=== PATIENT | male | born 1965 | race Caucasian/White ===

== ENCOUNTER 2021-03-31 11:50 | Outpatient (REF) | payer OTHER, SELFPAY ==
[2021-03-31 13:35] LABS: Estimated Average Glucose 137 mg/dL; Hemoglobin A1c % 6.4 %
[2021-03-31 13:37] LABS: Anion Gap 11 (12-20); Blood Urea Nitrogen 8 mg/dL (9-16); Carbon Dioxide 25 mmol/L (22-29); Chloride 104 mmol/L (96-108); Estimated Glomerular Filt Rate > 60; Glucose Fasting 106 mg/dL (60-99); Potassium 4.2 mmol/L (3.3-5.1); Sodium 136 mmol/L (135-145)
== END 2021-03-31 11:51 | disposition home or self-care (01) ==
LOC: HO.LAB 11:50
PROVIDERS: PCP Family Medicine; Visit Provider Family Medicine
DX: E11.9 Type 2 diabetes mellitus without complications (principal); I10 Essential (primary) hypertension
CPT/HCPCS: 36415; 80051; 82565; 82947; 83036; 84520

== ENCOUNTER 2021-06-20 05:45 | Emergency (ER) | payer OTHER, SELFPAY ==
--- NOTE | ~2021-06-20 | XR_ITS ---
EXAMINATION: XR SHOULDER, RIGHT CLINICAL INFORMATION: Shoulder pain COMPARISON: None TECHNIQUE: Three views of the right shoulder. XR/XR shoulder RT min 2V FINDINGS/IMPRESSION: Comminuted fractures involving the greater tuberosity with mild displacement of the greater tuberosity fracture fragments superiorly. No dislocation. Degenerative changes of the acromioclavicular joint characterized by marginal osteophyte ptosis and subchondral cystic changes.
--- NOTE | ~2021-06-20 | CT_ITS ---
EXAMINATION: CT HEAD WITHOUT CONTRAST CLINICAL INFORMATION: Fall on blood thinners. COMPARISON: None TECHNIQUE: Contiguous axial imaging was performed from the skull base to vertex without intravenous administration of contrast. This CT examination was performed using dose optimization techniques as appropriate, variously including the following: *Automated exposure control *Adjustment of mA and/or kV according to patient size (this includes techniques or standardized protocols for targeted exams where dose is matched to indication/reason for exam; i.e. extremities or head) *Use of iterative reconstruction technique DLP: 919 mGy-cm FINDINGS: There is no evidence of acute intracranial hemorrhage or territorial infarction. No abnormal mass effect or midline shift is seen. Gallo to white matter differentiation is well preserved. No extra-axial fluid collections are identified. The ventricles are normal in size. There is no abnormal attenuation within the brain parenchyma. Arachnoid cyst present within the left middle cranial fossa. The osseous structures and soft tissues are normal. The mastoid air cells and visualized portions of the paranasal sinuses are well aerated. CT/CT head/brain wo con IMPRESSION: No acute intracranial pathology.
[2021-06-20 05:53] VITALS: BP 129/74; PULSE 107; RESP 18; TEMP 36.8; O2SAT 97; BMI 49.0
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
--- NOTE | 2021-06-20 06:38 | PC.NURSE ---
PT TO X-RAY AND CT.
--- NOTE | 2021-06-20 06:38 | PC.NURSE ---
SLING APPLIED TO RIGHT ARM.
== END 2021-06-20 07:56 | disposition home or self-care (01) ==
PROVIDERS: Emergency Provider Student in an Organized Health Care Education/Training Program; PCP Family Medicine
DX: S42.251A Displaced fracture of greater tuberosity of right humerus, initial encounter for closed fracture (principal); W22.09XA Striking against other stationary object, initial encounter; Y93.89 Activity, other specified; Y92.811 Bus as the place of occurrence of the external cause; Y99.9 Unspecified external cause status
CPT/HCPCS: 70450; 73030; 99283; 99284

== ENCOUNTER → 2021-06-22 11:55 | Outpatient (BNVA) | payer OTHER, SELFPAY | PROVIDERS: PCP Family Medicine; Visit Provider Physician Assistant | DX: S42.253A Displaced fracture of greater tuberosity of unspecified humerus, initial encounter for closed fracture (principal) | CPT/HCPCS: 99202 ==

== ENCOUNTER 2021-06-23 15:53 | Outpatient (REF) | payer OTHER, SELFPAY ==
--- NOTE | ~2021-06-23 | CT_ITS ---
EXAMINATION: CT SHOULDER WITHOUT CONTRAST, RIGHT CLINICAL INFORMATION: Displaced fracture of the greater tuberosity of the right humeral head. COMPARISON: Radiograph dated 06/20/2021. TECHNIQUE: Multidetector volumetric imaging was obtained through the right shoulder without contrast. Multiplanar reformatted images in coronal and sagittal orientations were submitted. This CT examination was performed using dose optimization techniques as appropriate, variously including the following: *Automated exposure control *Adjustment of mA and/or kV according to patient size (this includes techniques or standardized protocols for targeted exams where dose is matched to indication/reason for exam; i.e. extremities or head) *Use of iterative reconstruction technique DLP: 544 mGy-cm FINDINGS: A mildly comminuted fracture is present at the greater tuberosity over an area measuring 4.5 x 3.8 cm (AP by craniocaudal) with posterior/cephalad/medial displacement of the tuberosity fracture fragments by approximately 2 cm. These fragments remain attached to the supraspinatus and infraspinatus tendons at the insertion. There is slight comminution of the anterior margin along the supraspinatus insertion. The lesser tuberosity is intact. No appreciable surgical neck fracture of the proximal humerus. 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 Undersurface of the acromion is flat. There is mild glenohumeral osteoarthritis with small marginal osteophytes at the glenoid and humeral head. Clavicle is intact. Imaged portion of the right chest wall is intact. There is fat stranding and soft tissue swelling around the fracture with involvement of the overlying deltoid muscle. No significant rotator cuff muscle atrophy. No significant fluid collections are identified. CT/CT shoulder RT wo con IMPRESSION: Neer 2 part fracture of the right proximal humerus at the greater tuberosity with posterior/superior/medial displacement of the fragments by 2 cm.
== END 2021-06-23 15:54 | disposition home or self-care (01) ==
LOC: HO.CT 15:53
PROVIDERS: PCP Family Medicine; Visit Provider Orthopaedic Surgery
DX: S42.253A Displaced fracture of greater tuberosity of unspecified humerus, initial encounter for closed fracture (principal)
CPT/HCPCS: 73200

== ENCOUNTER → 2021-06-29 09:53 | Outpatient (BNVA) | payer OTHER, SELFPAY | PROVIDERS: Visit Provider Physician Assistant | DX: S42.253D Displaced fracture of greater tuberosity of unspecified humerus, subsequent encounter for fracture with routine healing (principal) | CPT/HCPCS: 99212 ==

== ENCOUNTER 2021-09-23 08:12 | Outpatient (REF) | payer OTHER, SELFPAY | END 2021-09-23 08:13 | disposition home or self-care (01) | LOC: HO.HOSX 08:12 | PROVIDERS: Visit Provider Physician Assistant | DX: Z13.89 Encounter for screening for other disorder (principal) ==

== ENCOUNTER 2022-01-13 10:51 | Outpatient (REF) | payer OTHER, SELFPAY ==
[2022-01-13 11:42] LABS: Estimated Average Glucose 131 mg/dL; Hemoglobin A1c % 6.2 %
[2022-01-13 12:14] LABS: Anion Gap 10 (12-20); Blood Urea Nitrogen 7 mg/dL (9-16); Carbon Dioxide 26 mmol/L (22-29); Chloride 104 mmol/L (96-108); Cholesterol 112 mg/dL; Estimated Glomerular Filt Rate > 60; Glucose Fasting 123 mg/dL (60-99); HDL Cholesterol 41 mg/dL; LDL Cholesterol Calculated 60 mg/dl; Potassium 4.4 mmol/L (3.3-5.1); Sodium 136 mmol/L (135-145); Triglycerides 59 mg/dL
[2022-01-13 12:36] LABS: Microalbum/Creatinine Ratio Ur 11.9 ug/mg cr
== END 2022-01-13 10:52 | disposition home or self-care (01) ==
LOC: HO.LAB 10:51
PROVIDERS: PCP Family Medicine; Visit Provider Family Medicine
DX: I10 Essential (primary) hypertension (principal); E11.9 Type 2 diabetes mellitus without complications; E78.00 Pure hypercholesterolemia, unspecified
CPT/HCPCS: 36415; 80051; 80061; 82043; 82565; 82947; 83036; 84520

== ENCOUNTER 2022-03-27 03:22 | Emergency (ER) | payer OTHER, SELFPAY ==
[2022-03-27 03:33] VITALS: BP 146/86; PULSE 67; RESP 16; TEMP 36.8; O2SAT 99; BMI 50.1
--- NOTE | 2022-03-27 07:31 | ED.EAR ---
HPI - Ear Problem General Chief complaint: Ear Problems Stated complaint: R ear pain, something stuck? Time Seen by Provider: 03/27/22 07:31 Source: patient Mode of arrival: ambulatory History of Present Illness HPI Narrative: 56-year-old male presents with complaints of having some ear discomfort and he attempted to clean his right ear with a Q-tip and states that he lost the cotton a part within the ear, attempted to rinse it out but was unsuccessful. Now he complains of muffled hearing and discomfort in the right ear. Related Data Previous Rx's Medication Instructions Recorded lidocaine HCl 2 % mucosal solution 1 appl mucous membrane Q8H PRN 10/15/20 (Lidocaine Viscous) pain #100 mL valacyclovir 1 gram tablet 1,000 mg PO BID 7 days #14 tabs 10/15/20 (Valtrex) clindamycin HCl 300 mg capsule 300 mg PO TID 7 days #21 caps 10/23/20 naproxen 500 mg tablet 500 mg PO BID PRN pain #60 tabs 10/23/20 oxycodone 5 mg tablet 5 mg PO Q8H PRN pain 7 days #21 06/22/21 tabs Allergies Allergy/AdvReac Type Severity Reaction Status Date / Time No Known Allergies Allergy Verified 06/22/21 12:11 [No Known Allergies*] Review of Systems Review of Systems: Pertinent positives and negatives as stated in HPI 10 point review of systems otherwise negative. PMFSH Past Medical History Source: nursing notes reviewed Social History Social History Advance Directives: No Physical Exam Vital Signs: Vital Signs: Last Vital Signs Temp 98.3 F 03/27/22 03:33 Pulse 67 03/27/22 03:33 Resp 16 03/27/22 03:33 BP 146/86 H 03/27/22 03:33 Pulse Ox 99 03/27/22 03:33 O2 Del Method 03/27/22 03:33 BMI result Body Mass Index 50.1 VITAL SIGNS: Reviewed. GENERAL: Well developed, well nourished, in no acute distress. HEAD: Normocephalic/atraumatic EYES: PERRLA, EOMI EARS: Ext canals without abnormality , but was able to visualize the cotton portion of a Q-tip located in the right ear without evidence of surrounding erythema NOSE: Nares patent bilateral OROPHARYNX: no oral lesions noted, posterior pharynx clear LUNGS: Normal breath sounds. No adventitious sounds or accessory muscle use. SpO2<99> CARDIOVASCULAR: Regular rate and rhythm without noted murmur ABDOMEN: Soft, non-tender, non-distended with bowel sounds. Course Course Course Narrative: 56-year-old male with history and clinical presentation consistent with Q-tip cotton lodged in the right ear and then successfully removed. Patient is otherwise discharged home in stable condition without evidence of ear infection. Procedures Foreign Body Removal Time Out Performed: no Site: right and ear Description of foreign body: other Sedation/Analgesia: none Technique: removal with forceps Confirmed by:: direct visualization Complications: none Post-procedure exam: awake, alert Discharge Plan Discharge Clinical Impression: Foreign body in ear Patient Disposition: Home, Self-Care Instructions: Ear Foreign Body (ED) Additional Instructions: 1. Resume all home medications as prescribed. 2. Please follow-up with your primary care provider in the next 2-3 days for re-evaluation. Return to the ER for worsening symptoms. Prescriptions: No Action valacyclovir [Valtrex] 1 gram tablet 1,000 mg PO BID 7 Days Qty: 14 0RF Lidocaine Viscous 2 % solution 1 appl mucous membrane Q8H PRN (Reason: pain) Qty: 100 1RF clindamycin HCl 300 mg capsule 300 mg PO TID 7 Days Qty: 21 0RF naproxen 500 mg tablet 500 mg PO BID PRN (Reason: pain) Qty: 60 0RF oxycodone 5 mg tablet 5 mg PO Q8H PRN (Reason: pain) 7 Days Qty: 21 0RF Referrals: Soham Donovan MD [Primary Care Provider] -
== END 2022-03-27 08:06 | disposition home or self-care (01) ==
PROVIDERS: Emergency Provider Student in an Organized Health Care Education/Training Program; PCP Family Medicine
DX: T16.1XXA Foreign body in right ear, initial encounter (principal); X58.XXXA Exposure to other specified factors, initial encounter; H92.01 Otalgia, right ear; Y93.E8 Activity, other personal hygiene; Y92.012 Bathroom of single-family (private) house as the place of occurrence of the external cause; Y99.9 Unspecified external cause status
CPT/HCPCS: 69200; 99283; 99284

== ENCOUNTER 2022-06-11 10:45 | Outpatient (REF) | payer OTHER, SELFPAY ==
[2022-06-11 11:18] LABS: COVID-19 Test Negative (Negative); IDNOW Serial# 16C4AD1C
== END 2022-06-11 10:46 | disposition home or self-care (01) ==
LOC: HO.LAB 10:45
PROVIDERS: Visit Provider Internal Medicine
DX: Z20.822 Contact with and (suspected) exposure to COVID-19 (principal)
CPT/HCPCS: 87635; C9803

== ENCOUNTER 2022-10-28 10:56 | Outpatient (REF) | payer OTHER, SELFPAY ==
[2022-10-28 11:19] LABS: MANUAL DIFF FLAG NO
[2022-10-28 11:50] LABS: Basophils Percent Auto 0.6 % (0-2); Eosinophils Absolute Auto 0.1 X10*3/uL (0.0-0.4); Eosinophils Percent Auto 1.4 % (0-4); Hematocrit 51.4 % (42.0-52.0); Hemoglobin 16.1 g/dl (14.0-18.0); Imm Gran Abs Auto 0.02 X10*3/uL (0.00-0.03); Imm Gran Pct Auto 0.3 % (0.0-0.4); Lymphocytes Absolute Auto 1.2 X10*3/uL (1.2-4.9); Lymphocytes Percent Auto 18.5 % (20-40); Mean Corpuscular HGB Conc 31.3 g/dl (31.0-36.0); Mean Corpuscular Hemoglobin 27.1 pg (27.0-33.0); Mean Corpuscular Volume 86.4 fL (80.0-98.0); Mean Platelet Volume 11.1 fL (9.4-12.4); Monocytes Absolute Auto 0.4 X10*3/uL (0.1-1.2); Monocytes Percent Auto 6.2 % (2-11); Neutrophils Absolute Auto 4.7 x10*3/uL (2.0-8.3); Platelet Count 201 X10*3/uL (160-400); Red Blood Count 5.95 X10*6/uL (4.60-5.80); Red Cell Distribution Width 14.2 % (11.0-16.0); White Blood Count 6.5 X10*3/uL (4.8-10.8)
[2022-10-28 11:57] LABS: Estimated Average Glucose 137 mg/dL; Hemoglobin A1c % 6.4 %
[2022-10-28 12:24] LABS: Alanine Aminotransferase 15 U/L (0-40); Albumin Level 4.2 g/dL (3.5-5.0); Alkaline Phosphatase 73 U/L (39-117); Anion Gap 12 (12-20); Aspartate Amino Transferase 14 U/L (5-37); Bilirubin Total 0.9 mg/dL (0.0-1.0); Blood Urea Nitrogen 11 mg/dL (9-16); Calcium 8.9 mg/dL (8.4-10.2); Carbon Dioxide 26 mmol/L (22-29); Chloride 104 mmol/L (96-108); Estimated Glomerular Filt Rate > 60; Glucose Fasting 131 mg/dL (60-99); Potassium 4.6 mmol/L (3.3-5.1); Sodium 137 mmol/L (135-145); Total Protein 7.3 g/dL (6.5-8.0)
== END 2022-10-28 10:57 | disposition home or self-care (01) ==
LOC: HO.LAB 10:56
PROVIDERS: PCP Family Medicine; Visit Provider Family Medicine
DX: I10 Essential (primary) hypertension (principal); E11.9 Type 2 diabetes mellitus without complications; R53.83 Other fatigue
CPT/HCPCS: 36415; 80053; 83036; 85025

== ENCOUNTER 2023-02-22 12:41 | Outpatient (REF) | payer OTHER, SELFPAY ==
[2023-02-22 14:27] LABS: Glucose Fasting 116 mg/dL (60-99)
== END 2023-02-22 12:42 | disposition home or self-care (01) ==
LOC: HO.10HDL 12:41
PROVIDERS: Visit Provider Family Medicine
DX: E11.9 Type 2 diabetes mellitus without complications (principal)
CPT/HCPCS: 36415; 82947

== ENCOUNTER 2023-08-02 12:02 | Outpatient (REF) | payer OTHER, SELFPAY ==
[2023-08-02 13:38] LABS: Creatinine Urine 122.72 mg/dL; Microalbum/Creatinine Ratio Ur 195.5 ug/mg cr (<30)
[2023-08-02 13:39] LABS: MANUAL DIFF FLAG NO
[2023-08-02 13:44] LABS: Basophils Absolute Auto 0.1 X10*3/uL (0.0-0.2); Basophils Percent Auto 0.8 % (0-2); Eosinophils Absolute Auto 0.1 X10*3/uL (0.0-0.4); Eosinophils Percent Auto 1.1 % (0-4); Hematocrit 50.1 % (42.0-52.0); Hemoglobin 15.3 g/dl (14.0-18.0); Imm Gran Abs Auto 0.03 X10*3/uL (0.00-0.03); Imm Gran Pct Auto 0.4 % (0.0-0.4); Lymphocytes Absolute Auto 0.9 X10*3/uL (1.2-4.9); Lymphocytes Percent Auto 12.4 % (20-40); Mean Corpuscular HGB Conc 30.5 g/dl (31.0-36.0); Mean Corpuscular Volume 88.4 fL (80.0-98.0); Mean Platelet Volume 11.3 fL (9.4-12.4); Monocytes Absolute Auto 0.5 X10*3/uL (0.1-1.2); Monocytes Percent Auto 6.7 % (2-11); Neutrophils Absolute Auto 5.9 x10*3/uL (2.0-8.3); Neutrophils Percent Auto 78.6 % (45-73); Platelet Count 178 X10*3/uL (160-400); Red Blood Count 5.67 X10*6/uL (4.60-5.80); Red Cell Distribution Width 15.3 % (11.0-16.0); White Blood Count 7.4 X10*3/uL (4.8-10.8)
[2023-08-02 14:27] LABS: Estimated Average Glucose 131 mg/dL; Hemoglobin A1c % 6.2 % (<6.0)
[2023-08-02 14:32] LABS: Alanine Aminotransferase 14 U/L (0-40); Anion Gap 12 (12-20); Aspartate Amino Transferase 17 U/L (5-37); Blood Urea Nitrogen 8 mg/dL (9-16); Carbon Dioxide 26 mmol/L (22-29); Chloride 105 mmol/L (96-108); Estimated Glomerular Filt Rate > 60; Glucose Fasting 118 mg/dL (60-99); Potassium 4.4 mmol/L (3.3-5.1); Sodium 139 mmol/L (135-145)
== END 2023-08-02 12:03 | disposition home or self-care (01) ==
LOC: HO.10HDL 12:02
PROVIDERS: Visit Provider Family Medicine
DX: I10 Essential (primary) hypertension (principal); E11.9 Type 2 diabetes mellitus without complications; E66.9 Obesity, unspecified; I48.91 Unspecified atrial fibrillation
CPT/HCPCS: 36415; 80051; 82043; 82565; 82570; 82947; 83036; 84450; 84460; 84520; 85025